=== PATIENT | male | born 1935 | race Native Hawaiian/Other Pacific Islander ===

== ENCOUNTER 2019-06-20 17:47 | Outpatient (CLI) | payer OTHER ==
[~2019-06-20 17:47] MED LIST: CARV12.5 PO; CENTRUM SILVER OR; CHLORTHALID25 MG OR; FISH OIL1 C10 PO; RAMI10CA PO; ROSU10TA PO
== END 2019-06-20 18:01 | disposition short-term general hospital (02) ==
LOC: AMB 17:47
DX: I46.9 Cardiac arrest, cause unspecified (principal)
CPT/HCPCS: A0425; A0433

== ENCOUNTER 2019-06-20 18:02 | Emergency (ER) | payer OTHER ==
[~2019-06-20] VITALS: Ht 172.7 cm; Wt 81.6 kg
== END 2019-06-20 19:30 ==
LOC: ED 18:02
DX: I50.9 Heart failure, unspecified (principal); I46.9 Cardiac arrest, cause unspecified
CPT/HCPCS: 96374; 99291; J0171